=== PATIENT | male | born 1980 | race Caucasian/White ===

== ENCOUNTER 2023-12-01 15:40 | Inpatient (IN) | payer BC ==
[~2023-12-01] VITALS: Ht 188 cm; Wt 102.1 kg
[2023-12-01 16:18] LABS: HEMATOCRIT 46.2 % (36-54); HEMOGLOBIN 15.8 g/dL (14.0-18.0); MEAN CORPUSCULAR HEMOGLOBIN 29 pg (27-31); MEAN CORPUSCULAR HGB CONC 34 % (32-36); MEAN CORPUSCULAR VOLUME 86 fL (79.0-98.0); PLATELET COUNT (AUTO) 351 K/uL (130-430); RED BLOOD CELL COUNT(AUTO) 5.38 MIL/uL (4.2-6.2); RED CELL DISTRIBUTION WIDTH 13.9 % (9.0-15.0); WHITE BLOOD COUNT (AUTO) 18.7 K/uL (4.8-10.8)
[2023-12-01 16:47] LABS: LYMPHOCYTES % (MANUAL) 5 % (20-46); MONOCYTES % (MANUAL) 3 % (0-11); MYELOCYTES % 2 % (0-0)
[2023-12-01 16:48] LABS: PLATELET ESTIMATE ADEQUATE (ADEQUATE)
[2023-12-01 16:59] LABS: ACETAMINOPHEN 19 ug/mL (1-30); ANION GAP 23 (5-15); CALCIUM 8.6 mg/dL (8.4-11.0); CARBON DIOXIDE 16 mmol/L (23-29); CHLORIDE 102 mmol/L (98-107); CREATININE 2.82 mg/dL (0.55-1.30); GFR AFRICAN AMERICAN 32 mL/min (>90); GLUCOSE 107 mg/dL (74-106); POTASSIUM 4.8 mmol/L (3.5-5.1); SALICYLATE 2 mg/dL (3-30); SODIUM SERUM 141 mmol/L (136-145); UREA NITROGEN, BLOOD 19 mg/dL (8-21)
[2023-12-01 17:01] LABS: GFR NON AFRICAN-AMERICAN 26 mL/min (>90)
[2023-12-01] MEDS: ONDANSETRON HCL 4 MG/2 ML VIAL IVP ONE (17:02)
[2023-12-01] MEDS: NALOXONE HCL 2 MG/2 ML SYR IVP ONE (17:02)
[2023-12-01 17:03] LABS: ALCOHOL, BLOOD < 3 mg/dL (<10)
[2023-12-01] MEDS: NACL 0.9% 2,000 ML IV ONE (17:54)
[2023-12-01] MEDS ORDERED: PIPERACILLIN/TAZOBACTAM 3.375 GM/VIAL (ZOSYN) IV ONE (17:56)
[2023-12-01 17:57] LABS: BILIRUBIN,URINE NEGATIVE (NEGATIVE); BLOOD, URINE 3+ (NEGATIVE); CLARITY/URINE CLEAR (CLEAR); COLOR,URINE YELLOW (YELLOW); GLUCOSE,URINE NEGATIVE (NEGATIVE); KETONES,URINE TRACE (NEGATIVE); LEUKOCYTE ESTERASE ,URINE NEGATIVE (NEGATIVE); NITRITE, URINE NEGATIVE (NEGATIVE); PROTEIN URINE 1+ (NEGATIVE); UROBILINOGEN,URINE 0.2 (0.2-1.0)
[2023-12-01] MEDS: PIPERACILLIN/TAZO 3.375 GM in NS 50 ML IV ONE (17:59)
[2023-12-01 18:11] VITALS: BP_SYST 134; PULSE 111; RESP 15; O2SAT 98
[2023-12-01 18:19] LABS: BARBITURATE, URINE NEGATIVE (NEG <=200); BENZODIAZEPINE, URINE NEGATIVE (NEG <=150); CANNABINOID, URINE NEGATIVE (NEG <=50); COCAINE, URINE NEGATIVE (NEG <=150); METHAMPHETAMINES SCREEN,URINE NEGATIVE (NEG <=500); OPIATE, URINE POSITIVE (NEG <=100); PHENCYCLIDINE SCREEN,URINE NEGATIVE (NEG <=25); UR TRICYCLIC ANTIDEPRESSANTS NEGATIVE (NEG <=300); URINE AMPHETAMINE NEGATIVE (NEG <=500); URINE METHADONE NEGATIVE (NEG <=200); URINE OXYCODONE SCREEN NEGATIVE (NEG <=100)
[2023-12-01 18:30] LABS: BACTERIA,URINE MODERATE /HPF (None Seen); WBC,URINE 0-3 /HPF (0-3)
[2023-12-01] MEDS: ENOXAPARIN SODIUM 80 MG/0.8 ML SYRINGE SUBCUT ONE (18:42)
[2023-12-01 18:44] LABS: INR 1.3 (0.80-1.20); PROTHROMBIN TIME 13.5 SECS (9.5-12.5)
[2023-12-01] MEDS ORDERED: POTASSIUM CHLORIDE 20 MEQ TABLET.ER PO PRN (19:45)
[2023-12-01] MEDS ORDERED: ZOLPIDEM TARTRATE 5 MG TABLET PO PRN (19:45)
[2023-12-01] MEDS ORDERED: MUPIROCIN 2% TOPICAL OINTMENT 22 GM NS PRN (19:45)
[2023-12-01] MEDS ORDERED: DOCUSATE SODIUM 100 MG CAPSULE PO PRN (19:45)
[2023-12-01] MEDS ORDERED: *HEPARIN PER PHARMACY XX PRN (19:45)
[2023-12-01 20:09] LABS: THYROID STIMULATING HORMONE 1.15 uIu/mL (0.34-4.82)
[2023-12-01] MEDS ORDERED: HEPARIN SODIUM,PORCINE 3000 UNITS/0.6 ML BOLUS IVP PRN (20:30)
[2023-12-01] MEDS ORDERED: HEPARIN SODIUM,PORCINE 2000 UNITS/0.4 ML BOLUS IVP PRN (20:30)
[2023-12-01] MEDS ORDERED: ACETAMINOPHEN 500 MG TABLET PO PRN (21:15)
[2023-12-01] MEDS: NACL 0.9% 1,000 ML IV SCH (21:20)
[2023-12-01] MEDS: METOPROLOL TARTRATE 25 MG TABLET PO SCH (21:32)
[2023-12-01] MEDS: HEPARIN 25,000 UNITS in 250 ML PREMIX IV PRN (21:50)
[2023-12-01 23:34] VITALS: BP_SYST 135; PULSE 89; RESP 20; TEMP 98.5
[2023-12-02] VITALS (22 sets, daily range): BP systolic 108–160; PULSE 93–114; RESP 12–22; TEMP 97.5–99; O2SAT 92–97
[2023-12-02] MEDS: PIPERACILLIN/TAZOBACTAM 2.25 GM in D5W 50 ML IV SCH (00:56)
[2023-12-02 06:14] LABS: HEMATOCRIT 39.9 % (36-54); HEMOGLOBIN 13.6 g/dL (14.0-18.0); LYMPHOCYTES # (AUTO) 0.5 K/uL (1.0-5.5); LYMPHOCYTES % (AUTO) 3.1 % (20.5-51.5); MEAN CORPUSCULAR HEMOGLOBIN 29 pg (27-31); MEAN CORPUSCULAR HGB CONC 34 % (32-36); MEAN CORPUSCULAR VOLUME 86 fL (79.0-98.0); MONOCYTES # (AUTO) 0.4 K/uL (0.0-1.0); MONOCYTES % (AUTO) 2.2 % (1.7-9.3); NEUTROPHILS # (AUTO) 15.6 K/uL (1.8-7.7); NEUTROPHILS % (AUTO) 94.7 % (40.0-70.0); PLATELET COUNT (AUTO) 302 K/uL (130-430); RED BLOOD CELL COUNT(AUTO) 4.62 MIL/uL (4.2-6.2); RED CELL DISTRIBUTION WIDTH 13.9 % (9.0-15.0); WHITE BLOOD COUNT (AUTO) 16.5 K/uL (4.8-10.8)
[2023-12-02 06:35] LABS: CALCIUM 7.6 mg/dL (8.4-11.0); CREATININE 2.7 mg/dL (0.55-1.30); POTASSIUM 4.5 mmol/L (3.5-5.1)
[2023-12-02] MEDS: MAGNESIUM SULFATE 50 ML IV PRN (10:14)
[2023-12-02 11:26] LABS: CKMB RELATIVE INDEX 1.1 (0.0-2.9)
[2023-12-03] VITALS (7 sets, daily range): BP systolic 126–151; PULSE 87–108; RESP 15–22; TEMP 96.3–98.8; O2SAT 93–99
[2023-12-03 05:21] LABS: BASOPHILS # (AUTO) 0.1 K/uL (0.0-0.2); BASOPHILS % (AUTO) 0.6 % (0.0-2.0); EOSINOPHILS # (AUTO) 0.2 K/uL (0.0-0.4); EOSINOPHILS % (AUTO) 1.5 % (0.0-4.0); HEMATOCRIT 33.9 % (36-54); HEMOGLOBIN 11.7 g/dL (14.0-18.0); LYMPHOCYTES # (AUTO) 0.8 K/uL (1.0-5.5); LYMPHOCYTES % (AUTO) 7.3 % (20.5-51.5); MEAN CORPUSCULAR HEMOGLOBIN 30 pg (27-31); MEAN CORPUSCULAR HGB CONC 35 % (32-36); MEAN CORPUSCULAR VOLUME 86 fL (79.0-98.0); MONOCYTES # (AUTO) 0.5 K/uL (0.0-1.0); MONOCYTES % (AUTO) 4.9 % (1.7-9.3); NEUTROPHILS # (AUTO) 9.5 K/uL (1.8-7.7); NEUTROPHILS % (AUTO) 85.7 % (40.0-70.0); PLATELET COUNT (AUTO) 244 K/uL (130-430); RED BLOOD CELL COUNT(AUTO) 3.94 MIL/uL (4.2-6.2); RED CELL DISTRIBUTION WIDTH 13.9 % (9.0-15.0)
[2023-12-03 05:55] LABS: CALCIUM 7.8 mg/dL (8.4-11.0); CREATININE 2.09 mg/dL (0.55-1.30); POTASSIUM 3.8 mmol/L (3.5-5.1); TOTAL BILIRUBIN 0.7 mg/dL (0.0-1.0); TOTAL PROTEIN, SERUM 6.3 g/dL (6.4-8.3)
[2023-12-03 09:22] LABS: CKMB RELATIVE INDEX 0.4 (0.0-2.9); CREATINE KINASE MB 34.9 ng/mL (0-3.6)
[2023-12-03] MEDS: ASPIRIN 81 MG TAB.CHEW PO SCH (10:30)
[2023-12-04] VITALS: BP_SYST 132; PULSE 89; RESP 22; TEMP 98.2; O2SAT 97
[2023-12-04 04:00] VITALS: BP_SYST 145; PULSE 90; RESP 20; TEMP 98; O2SAT 98
[2023-12-04 04:57] LABS: BASOPHILS % (AUTO) 0.4 % (0.0-2.0); EOSINOPHILS # (AUTO) 0.1 K/uL (0.0-0.4); EOSINOPHILS % (AUTO) 0.7 % (0.0-4.0); HEMATOCRIT 32.7 % (36-54); HEMOGLOBIN 11.3 g/dL (14.0-18.0); LYMPHOCYTES # (AUTO) 0.7 K/uL (1.0-5.5); MEAN CORPUSCULAR HEMOGLOBIN 30 pg (27-31); MEAN CORPUSCULAR HGB CONC 35 % (32-36); MEAN CORPUSCULAR VOLUME 86 fL (79.0-98.0); MONOCYTES # (AUTO) 0.7 K/uL (0.0-1.0); MONOCYTES % (AUTO) 6.1 % (1.7-9.3); NEUTROPHILS # (AUTO) 9.2 K/uL (1.8-7.7); NEUTROPHILS % (AUTO) 85.8 % (40.0-70.0); PLATELET COUNT (AUTO) 227 K/uL (130-430); WHITE BLOOD COUNT (AUTO) 10.7 K/uL (4.8-10.8)
[2023-12-04 05:24] LABS: ALBUMIN 2.9 g/dL (3.4-4.8); CALCIUM 8.1 mg/dL (8.4-11.0); CREATININE 1.42 mg/dL (0.55-1.30); POTASSIUM 4.2 mmol/L (3.5-5.1); TOTAL BILIRUBIN 0.9 mg/dL (0.0-1.0)
[2023-12-04 08:00] VITALS: BP_SYST 133; PULSE 96; RESP 16; TEMP 98.5; O2SAT 100
[2023-12-04] MEDS: ONDANSETRON HCL 4 MG/2 ML VIAL IVP PRN (10:33)
[2023-12-04 12:00] VITALS: BP_SYST 121; PULSE 89; RESP 18; TEMP 98.3; O2SAT 99
[2023-12-04 16:00] VITALS: BP_SYST 127; PULSE 91; RESP 16; TEMP 98.2; O2SAT 100
[2023-12-04 20:05] VITALS: BP_SYST 125; PULSE 89; RESP 19; TEMP 98.6; O2SAT 98
[2023-12-05 00:45] VITALS: BP_SYST 121; PULSE 85; RESP 18; TEMP 98.4; O2SAT 98
[2023-12-05 03:56] LABS: BASOPHILS % (AUTO) 0.3 % (0.0-2.0); EOSINOPHILS # (AUTO) 0.1 K/uL (0.0-0.4); HEMATOCRIT 33.9 % (36-54); HEMOGLOBIN 11.9 g/dL (14.0-18.0); LYMPHOCYTES % (AUTO) 9.7 % (20.5-51.5); MEAN CORPUSCULAR HEMOGLOBIN 30 pg (27-31); MEAN CORPUSCULAR HGB CONC 35 % (32-36); MEAN CORPUSCULAR VOLUME 85 fL (79.0-98.0); MONOCYTES # (AUTO) 0.7 K/uL (0.0-1.0); MONOCYTES % (AUTO) 6.6 % (1.7-9.3); NEUTROPHILS # (AUTO) 8.3 K/uL (1.8-7.7); NEUTROPHILS % (AUTO) 82.4 % (40.0-70.0); PLATELET COUNT (AUTO) 227 K/uL (130-430); RED BLOOD CELL COUNT(AUTO) 3.97 MIL/uL (4.2-6.2); RED CELL DISTRIBUTION WIDTH 13.5 % (9.0-15.0)
[2023-12-05 05:20] LABS: ALBUMIN 2.7 g/dL (3.4-4.8); CALCIUM 8.2 mg/dL (8.4-11.0); CREATININE 1.24 mg/dL (0.55-1.30); POTASSIUM 3.5 mmol/L (3.5-5.1); TOTAL BILIRUBIN 0.9 mg/dL (0.0-1.0); TOTAL PROTEIN, SERUM 6.3 g/dL (6.4-8.3)
[2023-12-05 09:30] VITALS: BP_SYST 116; PULSE 90; RESP 16; TEMP 97.2; O2SAT 95
[2023-12-05] MEDS ORDERED: GADOTERATE MEGLUMINE 7.5 MMOL/15 ML VIAL IV ONE (09:59)
[2023-12-05] MEDS ORDERED: CLIN-22 PO (13:46)
[2023-12-05 14:45] VITALS: BP_SYST 126; PULSE 90; RESP 20; TEMP 98; O2SAT 96
[2023-12-05 15:46] VITALS: BP_SYST 126; PULSE 90; RESP 18; TEMP 98; O2SAT 96
== END 2023-12-05 16:30 | disposition home or self-care (01) | DRG 871 ==
LOC: SED 15:40 → SIC 18:52 → UNDOADMIN 18:52 → SIC 22:20 → SMU 12-04 06:20 → STU 12-04 17:10
PROVIDERS: ADMIT General Practice; ATTEND General Practice
DX: A41.9 Sepsis, unspecified organism (principal); G93.41 Metabolic encephalopathy; I21.4 Non-ST elevation (NSTEMI) myocardial infarction; J69.0 Pneumonitis due to inhalation of food and vomit; N17.0 Acute kidney failure with tubular necrosis; M62.82 Rhabdomyolysis; N39.0 Urinary tract infection, site not specified; T40.2X1A Poisoning by other opioids, accidental (unintentional), initial encounter; G89.29 Other chronic pain; F32.A Depression, unspecified; Y90.9 Presence of alcohol in blood, level not specified; F10.10 Alcohol abuse, uncomplicated; Y92.89 Other specified places as the place of occurrence of the external cause
CPT/HCPCS: 36415; 70450-TC; 71045; 72158; 76770; 80048; 80053; 80061; 80307; 81000; 81001; 81015; 82150; 82550; 82553; 83037; 83605; 83690; 83735; 83880; 84443; 84484; 85007; 85025; 85027; 85610; 85730; 87040; 87081; 87086; 93005; 93306; 95816; 97110-GP; 97116-GP; 97163-GP; 97530-GP; 99291; 99292; A9575; G0378; G0480; G0481; G0482; J1644; J1650; J2310; J2405; J2543; J3475; J7060